=== PATIENT | female | born 1995 | race American Indian/Alaskan Native ===

== ENCOUNTER 2017-07-26 12:17 | Emergency (ER) | payer OTHER ==
[~2017-07-26] VITALS: Ht 154.9 cm; Wt 54.4 kg
[~2017-07-26 12:17] MED LIST: Antivert25 MG PO; Cortisporin Ear10 ML RIGHTEAR; Naprosyn500 MG PO; PENVK500 PO; Zofran Odt4 MG SL
== END 2017-07-26 13:41 | disposition home or self-care (01) ==
LOC: ER 12:17
DX: S00.411A Abrasion of right ear, initial encounter (principal); J06.9 Acute upper respiratory infection, unspecified; W22.8XXA Striking against or struck by other objects, initial encounter; Z88.8 Allergy status to other drugs, medicaments and biological substances; Z87.891 Personal history of nicotine dependence
CPT/HCPCS: 99282

== ENCOUNTER 2023-04-24 10:06 | Emergency (ER) | payer OTHER ==
[~2023-04-24] VITALS: Ht 152.4 cm; Wt 59.0 kg
[2023-04-24] MEDS ORDERED: BCP (10:51)
[2023-04-24 10:58] LABS: BASOPHILS ABSOLUTE AUTO 0.03 K/mm3 (0.00-0.23); BASOPHILS PERCENT AUTO 0 % (0-2); EOSINOPHILS PERCENT AUTO 0 % (0-6); Hematocrit 40.4 % (33.0-51.0); Hemoglobin 14.3 g/dL (11.5-16.0); IMMATURE GRAN ABSOLUTE AUTO 0.07 K/mm3 (0.00-0.10); IMMATURE GRAN PERCENT AUTO 1 % (0-1); LYMPHOCYTES ABSOLUTE AUTO 0.89 K/mm3 (0.84-5.20); LYMPHOCYTES PERCENT AUTO 6 % (21-46); MONOCYTES ABSOLUTE AUTO 1.05 K/mm3 (0.16-1.47); MONOCYTES PERCENT AUTO 7 % (4-13); Mean Corpuscular HGB 32.4 pg (26.0-34.0); Mean Corpuscular HGB Conc 35.4 g/dL (31.5-36.5); Mean Corpuscular Volume 92 fL (80-100); Mean Platelet Volume 8.6 fL (9.1-12.4); NEUTROPHILS ABSOLUTE AUTO 12.91 K/mm3 (1.96-9.15); NEUTROPHILS PERCENT AUTO 86 % (41-73); Platelet Count 280 K/mm3 (150-400); RDW Coefficient Variation 12.3 % (11.7-14.2); RDW Standard Deviation 41.1 fL (35.1-46.3); Red Blood Cell Count 4.41 M/mm3 (3.80-5.20); White Blood Cell Count 14.95 K/mm3 (4.00-11.30)
[2023-04-24 11:17] LABS: Albumin, Blood 3.5 g/dL (3.4-5.0); Albumin/Globulin Ratio 0.8 (0.8-1.8); Bilirubin, Total 0.4 mg/dL (0.1-1.0); Bun/Creatinine Ratio 6.8 (12.0-20.0); Calcium, Blood 8.7 mg/dL (8.5-10.1); Creatinine, Blood 0.59 mg/dL (0.40-1.00); Globulin, Blood 4.2 g/dL (2.2-4.0); Magnesium, Blood 1.7 mg/dL (1.6-2.4); Potassium, Blood 3.4 mmol/L (3.5-5.5); Total Protein, Blood 7.7 g/dL (6.4-8.2)
[2023-04-24 11:54] LABS: Source, Urine Clean Catch
[2023-04-24 12:55] LABS: Appearance, Urine Hazy (Clear); Bilirubin, Urine Neg (Neg); Blood, Urine 2+ (Neg); Color, Urine Yellow (P-Yellow); Glucose Qualitative, Urine Neg (Neg); Ketones, Urine 3+ (Neg); Leukocyte Esterase, Urine 3+ (Neg); Nitrite, Urine Neg (Neg); Protein, Urine 2+ (Neg); Specific Gravity, Urine 1.015 (1.003-1.022); Urobilinogen, Urine NORM (Normal)
[2023-04-24 13:27] LABS: Bacteria Many /hpf; Squamous Epithelial Cells Many /hpf (Few)
[2023-04-24 13:30] LABS: Mucus Heavy (0-Heavy)
[2023-04-24 13:45] VITALS: BP 108/72
[2023-04-24] MEDS ORDERED: DIPATR PO (14:58)
== END 2023-04-24 15:09 | disposition home or self-care (01) ==
LOC: ER 10:06
PROVIDERS: Emergency Medicine; Physician Assistant
DX: R19.7 Diarrhea, unspecified (principal); R11.2 Nausea with vomiting, unspecified; Z88.8 Allergy status to other drugs, medicaments and biological substances; Z87.891 Personal history of nicotine dependence
CPT/HCPCS: 80053; 81001; 83735; 84703; 85025; 87077; 87086; 87186; 96361; 96374; 96375; 99284-25; J1885; J2405; J7030

== ENCOUNTER 2024-01-10 21:04 | Emergency (ER) | payer OTHER ==
[~2024-01-10] VITALS: Ht 167.6 cm; Wt 63.5 kg
[~2024-01-10 21:04] MED LIST changes: +BCP; +DIPATR PO
[2024-01-10 21:12] VITALS: BP 137/107
== END 2024-01-10 22:05 | disposition home or self-care (01) ==
LOC: ER 21:04
DX: S90.01XA Contusion of right ankle, initial encounter (principal); Z88.6 Allergy status to analgesic agent; Z87.891 Personal history of nicotine dependence; W01.0XXA Fall on same level from slipping, tripping and stumbling without subsequent striking against object, initial encounter
CPT/HCPCS: 73610; 99283-25

== ENCOUNTER 2024-01-23 00:18 | Observation (INO) | payer OTHER ==
[~2024-01-23] VITALS: Ht 152.4 cm; Wt 68.0 kg
[2024-01-23 02:03] LABS: BASOPHILS ABSOLUTE AUTO 0.08 K/mm3 (0.00-0.23); BASOPHILS PERCENT AUTO 1 % (0-2); EOSINOPHILS ABSOLUTE AUTO 0.24 K/mm3 (0.00-0.68); EOSINOPHILS PERCENT AUTO 3 % (0-6); Hematocrit 43.3 % (33.0-51.0); IMMATURE GRAN ABSOLUTE AUTO 0.02 K/mm3 (0.00-0.10); IMMATURE GRAN PERCENT AUTO 0 % (0-1); LYMPHOCYTES PERCENT AUTO 44 % (21-46); MONOCYTES ABSOLUTE AUTO 0.51 K/mm3 (0.16-1.47); MONOCYTES PERCENT AUTO 6 % (4-13); Mean Corpuscular HGB 32.7 pg (26.0-34.0); Mean Corpuscular HGB Conc 34.6 g/dL (31.5-36.5); Mean Corpuscular Volume 94 fL (80-100); Mean Platelet Volume 8.5 fL (9.1-12.4); NEUTROPHILS ABSOLUTE AUTO 3.96 K/mm3 (1.96-9.15); NEUTROPHILS PERCENT AUTO 47 % (41-73); Platelet Count 444 K/mm3 (150-400); RDW Standard Deviation 45.1 fL (35.1-46.3); Red Blood Cell Count 4.59 M/mm3 (3.80-5.20); White Blood Cell Count 8.51 K/mm3 (4.00-11.30)
[2024-01-23 02:13] LABS: Albumin/Globulin Ratio 0.9 (0.8-1.8); Bilirubin, Total 0.3 mg/dL (0.1-1.0); Bun/Creatinine Ratio 10.4 (12.0-20.0); Calcium, Blood 8.7 mg/dL (8.5-10.1); Creatinine, Blood 0.48 mg/dL (0.40-1.00); Globulin, Blood 4.4 g/dL (2.2-4.0); Potassium, Blood 4.1 mmol/L (3.5-5.5); Total Protein, Blood 8.4 g/dL (6.4-8.2)
[2024-01-23 14:38] LABS: U Amphetamine Screen Not Detected; U Barbituate Screen Not Detected; U Benzodiazapine Screen Not Detected; U Buprenorphine Screen Not Detected; U Cannabinoids Screen DETECTED; U Cocaine Screen DETECTED; U Methadone Screen Not Detected; U Methamphetamine Screen Not Detected; U Opiates Screen Not Detected; U Oxycodone Screen Not Detected; U Phencyclidine Screen Not Detected
[2024-01-23] MEDS ORDERED: Ibuprofen 600 MG Tab PO ONE (19:30)
[2024-01-24] MEDS ORDERED: Acetaminophen/Aspirin/Caffeine 250/250/65 MG PO ONE (01:20)
[2024-01-24 15:47] VITALS: BP 117/87
[2024-01-25] MEDS ORDERED: INCASSIA0.35 MG PO (07:14)
== END 2024-01-24 15:46 | disposition other institution (70) ==
LOC: ER 00:18 → EOR 00:19
PROVIDERS: ADMIT Emergency Medicine
DX: F31.9 Bipolar disorder, unspecified (principal); F43.10 Post-traumatic stress disorder, unspecified; F10.129 Alcohol abuse with intoxication, unspecified; T14.91XA Suicide attempt, initial encounter; Z87.891 Personal history of nicotine dependence; Z88.6 Allergy status to analgesic agent
CPT/HCPCS: 80053; 80320; 84443; 85025; 93005; 93010; 99285-25; A9270; G0378

== ENCOUNTER 2024-01-24 12:24 | Inpatient (IN) | payer OTHER ==
[~2024-01-24] VITALS: Ht 152.4 cm; Wt 63.6 kg
[2024-01-24] MEDS ORDERED: OLANZapine ODT 10 MG Tab MM PRN (14:30)
[2024-01-24] MEDS ORDERED: OLANZapine ODT 5 MG Tab MM PRN (14:30)
[2024-01-24] MEDS ORDERED: FLU VACC TS2024-25(6MOS UP)/PF 45 MCG/0.5 ML SYRINGE IM SCH (14:30)
[2024-01-24] MEDS ORDERED: LORazepam 2 MG Tab PO PRN (14:35)
--- NOTE | 2024-01-24 18:19 | NUR ---
SHIFT SUMMARY PT ADMITTED FROM THE ED FOR SUICIDE ATTEMPT/MDD. PT WAS INTOXICATED AND TRIED TO JUMP OFF A BRIDGE IN [place]. HER ATTEMPT WAS HALTED BY POLICE AND SHE WAS BROUGHT BY POLICE TO THE ED. PT HAS A HX OF PTSD, DEPRESSION, AND ANXIETY. SHE ALSO HAS AN EXTENSIVE FAMILY HX OF FAMILY COMMITTING SUICIDE. PT DOES NOT CURRENTLY ENDORSE SI BUT SAYS THAT SHE IS VERY DEPRESSED. SHE RECENTLY WENT THROUGH A BREAKUP AND LOST HER HOUSING. SHE IS CURRENTLY COUCH SURFING AND STRUGGLING WITH SUBSTANCE USE. SHE IS A DAILY DRINKER AND COCAINE USER. CIWAS DONE ON PT. PT ADMITTED TO [facility] AND [facility] TO GET HELP.
[2024-01-24] MEDS ORDERED: Acetaminophen 325 MG TABLET PO PRN (20:30)
[2024-01-24 20:33] VITALS: BP 122/90
[2024-01-24] MEDS ORDERED: LORazepam 1 MG Tab PO SCH (21:00)
--- NOTE | 2024-01-25 04:45 | NUR ---
Patient is A&OX3, cooperative with care. Emily is very regretful about her life choices, and worried about how she is going to pull herself up again. 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 She is currently staying at different [facility] houses as she has lost her housing. She said she was thinking of BHU as her first step to feeling better about herself and making better choices. Denies SI on assessment, and no HI or AVH. will continue close monitoring
[2024-01-25] MEDS ORDERED: INCASSIA0.35 MG PO (07:14)
[2024-01-25 08:04] VITALS: BP 120/78
[2024-01-25] MEDS ORDERED: Nicotine 14 MG PATCH TOP SCH (10:46)
[2024-01-25] MEDS ORDERED: Citalopram Hydrobromide 20 MG Tab PO SCH (10:47)
[2024-01-25] MEDS ORDERED: NORETHINDRONE 0.35 MG PO SCH (17:00)
--- NOTE | 2024-01-25 17:06 | NUR ---
SHIFT SUMMARY PT A/O X4; PLEASANT AND COOPERATIVE WITH CARE. SHE DENIES SI, HI, OR ANY HALLUCINATIONS. HOWEVER, THE PT DOES REPORT SOME "FLASHBACKS" TO HER TRYING TO JUMP [place] AND GETTING ARRESTED. PT FEELS A LOT OF REMORSE ABOUT TRYING TO JUMP OFF THE BRIDGE AND BECOMES TEARFUL AT TIMES. SHE HAS PARTICIPATED IN ALL GROUPS THIS SHIFT. CIWAS HAVE BEEN NEGATIVE THIS SHIFT. PT MONITORED VIA Q15 ROUNDING AND REPORTS NO NEW NEEDS AT THIS TIME.
[2024-01-25 20:30] VITALS: BP 119/85
--- NOTE | 2024-01-26 04:48 | NUR ---
Patient is alert and oriented X4, much less sad than last night. She spoke to her mother early in the shift, and she and her aunt will be visiting [facility] this afternoon. No SI,HI or AVH noted on assessment, Sleeping well tonight with sleep hours so far totalling 7 hours. CIWA score while she was awake was 3. will continue close monitoring
[2024-01-26 08:18] VITALS: BP 100/72
--- NOTE | 2024-01-26 09:02 | NUR ---
PT DENIED SI, HI AND AVH. SHE ENDORSEED ANXITY OF 2/10w AND PAIN TO HER RIGHT LOWER LEG AND NECK 2/10w. SHE IS PLEASANT AND COOPERATIVE. WHEN ASKED ABOUT HER THOUGHTS ABOUT THE DAY SHE REPLIED, "I'M JUST TIRED AND COLD. MY MOMS SUPPOSED TO COME IN TODAY SO WE CAN MAKE SOME PLANS ABOUT MY FUTURE. I MIGHT MOVE TO [place]...GOING BACK TO THE [facility] PROBABLY ISN'T A GOOD PLAN FOR ME." PT EXPRESSED THE DESIRE TO ATTEND GROUPS TODAY.
[2024-01-26] MEDS ORDERED: LORazepam 0.5 MG Tab PO SCH (14:00)
--- NOTE | 2024-01-26 14:27 | NUR ---
PT IS IN AN ART GROUP...ACTIVELY PARTICIPATING IN THE MILIEU. SHE REPORTED NECK AND LEG PAIN OF 6/10w AND WAS MEDICATED WITH TYLENOL 650MG.
--- NOTE | 2024-01-26 16:42 | NUR ---
PT REPORTED A FALL IN HER ROOM DUE TO DIZZINESS. SHE SAID SHE WAS DIZZY AND STUMBLED INTO THE WALL AND HIT HER HEAD AND THEN FELL ON THE FLOOR. SHE REPORTED THAT HER LEFT BUTTOCK HURTS. AREAS OBSEREVED, NO REDNESS OR BRUISING NOTED. VS WITHIN NORMAL LIMITS, B/P 117/70, P 98. BIOX 98%. PT ESCORTED TO HER ROOM WHERE SHE IS RESTING QUIETLY.
[2024-01-26 20:24] VITALS: BP 104/73
--- NOTE | 2024-01-27 04:20 | NUR ---
PATIENT WAS IN BED THE ENTIRE SHIFT. SHE STARTED THE SHIFT OUT IN BED READING. SHE WAS PLEASANT AND COOPERATIVE WITH CARES. SHE STATED THAT SHE HAD A GOOD DAY. SHE TOOK HER EVENING MEDICATIONS, AND READ FOR A WHILE LONGER. SHE WAS THEN NOTED TO BE IN BED RESTING WITH EYES CLOSED AND RESPIRATIONS CONFIRMED. SHE HAD NO S/SX SUICIDAL IDEATION OR SELF HARM THIS SHIFT. CONTINUING TO MONITOR Q15 MINUTES.
[2024-01-27 08:21] VITALS: BP 107/78
--- NOTE | 2024-01-27 09:06 | NUR ---
PT A/O X3. IN BRIGHT MOOD AT THIS TIME. ATE BREAKFAST AND NOW IN GROUP. WILL CONTINUE TO MONITOR.
--- NOTE | 2024-01-27 11:20 | NUR ---
PT PLEASANT AND COOPERATIVE. DENIES SI,HI,AH.VH AT THIS TIME. GIVEN TYLENOL AT THIS TIME FOR MENSTRAL CRAMPS. 11/05. IS HAVING THEM FROM [facility]. FAMILY UNABLE TO BRING IT FROM HOME. SAYS SHE WILL RESTART IT ON DISCHARGE. FEELS TIRED TODAY. ISSING GROUP AT THIS TIME IN BED WITH CRAMPING. STATES THINGS ARE GETTING BETTER SINCE BEING HERE. WILL CONTNUE TO MONITOR.
--- NOTE | 2024-01-27 17:01 | NUR ---
SHIFT SUMMARY: PT PLEASANT AND COOPRATIVE. DENIES SI, HI,AV,VH. PAIN UNDER CONTROL 07/06 AT THIS TIME FOR CRAMPING. ENJOYED AFTERNOON GROUP SESSION. FELT TIRED AT THE BEGINNING OF THE SHIFT AND RESTED. PLANS TO DISCHARGE TO [place]UN[place] THEN MOVE TO [place]. UP FOR DINNER. WILL CONTINUE TO MONITOR.
--- NOTE | 2024-01-28 04:22 | NUR ---
PATIENT WAS UP IN THE MILIEU AT THE BEGINNING OF SHIFT, PACING THE HALLWAY. SHE STATED THAT SHE IS "EXERCIZING". SHE WAS PLEASANT AND COOPERATIVE WITH CARES. SHE HAD NO EVENING MEDICATIONS. SHE HAD A SNACK AND WAS HELPFUL WITH STAFF DOING CHORES, WANTING TO HELP. SHE WENT TO BED AND WAS UP A COUPLE OF TIMES, BUT MOSTLY IN BED RESTING WITH EYES CLOSED AND RESPIRATIONS CONFIRMED. SHE HAD NO S/SX SUICIDAL IDEATION OR SELF HARM THIS SHIFT. CONTINUING TO MONITOR WITH Q15 MINUTE CHECKS.
[2024-01-28 08:30] VITALS: BP 120/76
--- NOTE | 2024-01-28 08:54 | NUR ---
PT PLEASANT AND COOPERATIVE. DENIES ANY ISSUES. NO CRAMPS TODAY. IN BED READING A BOOK. IN A HAPPY MOOD. ATE BREAKFAST. WILL CONTINUE TO MONITOR
--- NOTE | 2024-01-28 17:32 | NUR ---
SHIFT SUMMARY: PT HAD A GOOD DAY. HAS HAD A HEADACHE. MEDICATED WITH TYLENOL. SHE THINKS IT WAS TO MUCH SUGAR CANDY YESTERDAY. IS IN A GREAT MOOD. SHE WILL GOING HOME TOMORROW. PLEASANT AND COOPERAATIVE. NO ISSUES ON THIS SHIFT. WILL CONTINUE TO MONITOR.
[2024-01-28 19:11] VITALS: BP 115/75
--- NOTE | 2024-01-29 04:59 | NUR ---
PATIENT WAS IN GROUP ROOM AT THE BEGINNING OF THE SHIFT, WORKING ON A PUZZLE WITH PEERS. SHE WAS PLEASANT AND COOPERATIVE WITH CARES. SHE WENT WITH THE GROUP TO THE DINING AREA TO HAVE A SNACK, AND WAS TALKATIVE AND CHEERFUL. SHE THEN WENT TO BED, WHERE SHE READ FOR A SHORT TIME, THEN WAS IN BED RESTING WITH EYES CLOSED AND RESPIRATIONS CONFIRMED. SHE HAD NO S/SX SUICIDAL IDEATION OR SELF HARM THIS SHIFT. CONTINUING TO MONITOR WITH Q15 CHECKS.
--- NOTE | 2024-01-29 09:49 | NUR ---
PT STATES SHE IS READY TO GO HOME TODAY. PLEASANT AND COOPERATIVE. BACK TO ROOM AFTER BREAKFAST. READS IN BED.
[2024-01-29] MEDS ORDERED: Celexa20 MG PO (11:27)
--- NOTE | 2024-01-29 12:05 | NUR ---
DISCHARGE PT PROVIDED W/ DISCHARGE INFORMATION AND F/U APPTS. PT V/U OF COMMUNITY RESOURCES AND REPORTS FAMILY SUPPORT. PT CONTINUES TO BE THANKFUL FOR [facility] STAFF AND ASSISTANCE. PT PERSONAL BELONINGINGS RETURNED AND PT ESCORTED TO [facility]OBBY TO MEET FAMILY FOR TRANSPORT.
== END 2024-01-29 12:23 | disposition home or self-care (01) | DRG 885 ==
LOC: BHU 12:24
PROVIDERS: ADMIT Psychiatry & Neurology Psychiatry
DX: F33.2 Major depressive disorder, recurrent severe without psychotic features (principal); F10.20 Alcohol dependence, uncomplicated; Z87.891 Personal history of nicotine dependence; F43.10 Post-traumatic stress disorder, unspecified; F41.9 Anxiety disorder, unspecified; Z88.8 Allergy status to other drugs, medicaments and biological substances; Z79.899 Other long term (current) drug therapy
CPT/HCPCS: A9270